=== PATIENT | male | born 1960 | race Hispanic/Latino ===

== ENCOUNTER → 2018-01-19 | Outpatient (CLI) | payer OTHER ==
[~2018-01-19] MED LIST: CEPH500B PO; GLIP-220 PO; NAPR-1023 PO; SIMV40TA5 PO; SITA1TBM7 PO; TYL3 PO
== END | disposition home or self-care (01) ==
LOC: RAH 10:36
PROVIDERS: ATTEND Orthopaedic Surgery
DX: S83.511A Sprain of anterior cruciate ligament of right knee, initial encounter (principal); S83.281A Other tear of lateral meniscus, current injury, right knee, initial encounter; X58.XXXA Exposure to other specified factors, initial encounter; Y93.89 Activity, other specified; Y92.89 Other specified places as the place of occurrence of the external cause; Y99.8 Other external cause status
CPT/HCPCS: 73721

== ENCOUNTER 2018-02-11 06:42 | Day surgery (SDC) | payer OTHER ==
[2018-02-10 15:36] LABS: BASOPHILS % (AUTO) 1.4 % (0.0-5.0); EOSINOPHILS % (AUTO) 3.6 % (0.0-8.0); HEMATOCRIT 48.3 % (42-54); LYMPHOCYTES % (AUTO) 32.5 % (21.0-51.0); MEAN CORPUSCULAR HEMOGLOBIN 26.8 pg (27.0-33.0); MEAN CORPUSCULAR HGB CONC 32.8 g/dL (32.0-36.0); MEAN CORPUSCULAR VOLUME 81.5 fL (79-99); MONOCYTES % (AUTO) 7.3 % (3.0-13.0); NEUTROPHILS % (AUTO) 55.2 % (40.0-77.0); NUCLEATED RED BLOOD CELLS 0.1 % (0.0-0.19); PLATELET COUNT (AUTO) 346 K/uL (130-400); RED BLOOD CELL COUNT(AUTO) 5.92 MIL/uL (4.50-6.20); RED CELL DISTRIBUTION WIDTH 14.1 % (11.0-15.5); WHITE BLOOD COUNT (AUTO) 6.6 K/uL (4.8-10.8)
[2018-02-10 15:37] VITALS: BP 123/63
[2018-02-10 15:44] LABS: CREATININE 0.9 mg/dL (0.5-1.5); POTASSIUM 4.2 mmol/L (3.5-5.1)
[~2018-02-11] VITALS: Ht 165.1 cm; Wt 67.4 kg
[2018-02-11] VITALS (16 sets, daily range): BP systolic 75–120; BP diastolic 40–67
[~2018-02-11 06:42] MED LIST changes: -CEPH500B PO; -NAPR-1023 PO; -TYL3 PO
[2018-02-11] MEDS ORDERED: LIDOCAINE PF 2% 5ML ABBOJECT ONE ×2 (07:03→08:15)
[2018-02-11] MEDS ORDERED: DEXAMETHASONE SOD PHOSPHATE 10MG/ML 1ML VIAL ONE ×2 (07:03→08:15)
[2018-02-11] MEDS ORDERED: GLYCOPYRROLATE 0.2 MG/ML 5 ML VIAL ONE ×2 (07:03→08:15)
[2018-02-11] MEDS ORDERED: NEOSTIGMINE 5MG/5ML SYR IV ONE ×2 (07:03→08:15)
[2018-02-11] MEDS ORDERED: ONDANSETRON HCL 4 MG/2 ML VIAL ONE ×2 (07:03→08:15)
[2018-02-11] MEDS ORDERED: MIDAZOLAM HCL 1 MG/ML 2ML VIAL ONE ×2 (07:04→08:15)
[2018-02-11] MEDS ORDERED: PROPOFOL 10 MG/ML 20ML VIAL IV ONE ×2 (07:04→08:15)
[2018-02-11] MEDS ORDERED: FENTANYL CITRATE PF 50 MCG/1 ML 2ML VIAL ONE ×2 (07:04→08:16)
[2018-02-11] MEDS ORDERED: WATER FOR INJECTION,STERILE 20 ML VIAL IJ ONE (08:00)
[2018-02-11] MEDS ORDERED: SODIUM CHLORIDE 0.9% 1000ML 1,000 ML IV ONE (08:10)
[2018-02-11] MEDS ORDERED: LIDOCAINE HCL 4% LTA SOL 4 ML VIAL ONE (08:15)
[2018-02-11] MEDS ORDERED: LIDOCAINE HCL-MPF 1% 5ML AMP IJ ONE (08:15)
[2018-02-11] MEDS ORDERED: SODIUM CHLORIDE 0.9% 10 ML VIAL ONE (08:15)
[2018-02-11] MEDS ORDERED: PHENYLEPHRINE HCL 10 MG/ML 1ML VIAL IV ONE (08:15)
[2018-02-11] MEDS ORDERED: ROCURONIUM BROMIDE 10MG/1ML 5ML VL ONE (08:15)
[2018-02-11] MEDS ORDERED: INSULIN HUMULIN R 100 UNIT/ML 3ML ONE (08:24)
[2018-02-11] MEDS: CEFAZOLIN SODIUM 1 GM VIAL IVP ONE ×2 (08:53→09:02)
[2018-02-11] MEDS ORDERED: TYL3 PO (09:52)
[2018-02-11] MEDS ORDERED: NAPR-1023 PO (09:52)
[2018-02-11] MEDS ORDERED: CEPH500B PO (09:52)
== END 2018-02-11 11:35 | disposition home or self-care (01) ==
LOC: DAH 06:42
PROVIDERS: ATTEND Orthopaedic Surgery
DX: S83.251A Bucket-handle tear of lateral meniscus, current injury, right knee, initial encounter (principal); I10 Essential (primary) hypertension; E11.9 Type 2 diabetes mellitus without complications; E78.5 Hyperlipidemia, unspecified; X58.XXXA Exposure to other specified factors, initial encounter; Y93.89 Activity, other specified; Y92.89 Other specified places as the place of occurrence of the external cause; Y99.8 Other external cause status; Z79.899 Other long term (current) drug therapy; Z90.49 Acquired absence of other specified parts of digestive tract; Z83.3 Family history of diabetes mellitus
CPT/HCPCS: 29881; 36415; 80048; 82948 ×4; 85025; A4218; A4606; A4649 ×2; A4930; A6223; J0690; J1100 ×2; J1815; J2001 ×2; J2250; J2370; J2405 ×2; J2704 ×2; J2710 ×2; J3010; J3490 ×4; J7030